=== PATIENT | female | born 1965 | race Hispanic/Latino ===

== ENCOUNTER 2018-09-25 05:11 | Emergency (ER) | payer BC, SELFPAY ==
[2018-09-25 05:38] LABS: Pregnancy Test - Urine (BHCG) Negative (Negative); Pregu Control Background? CLEAR/WHITE (CLR/WHITE); Pregu Control Bar Appear? YES (CONTROL BAR); Specific Gravity 1.002 (1.002-1.036)
[2018-09-25 05:39] LABS: Bilirubin Negative (Negative); Blood, Urine Moderate (Negative); Clarity Hazy (Clear); Glucose, Urine (Dipstick) Negative (Negative); Leukocyte Large (Negative); Nitrite Negative (Negative); Protein, Urine (Dipstick) Negative (Neg-Trace); Urobilinogen 0.2 mg/dL (0.2-1.0); pH, Urine 7.5 (5.0-9.0)
[2018-09-25] MEDS ORDERED: Cephalexin 500 MG CAP ONE (05:44)
[2018-09-25 05:47] LABS: Bacteria/HPF Rare-Few HPF (None Seen); Squamous Epithelial 0-3 HPF (0-3); WBC/HPF 0-3 HPF (0-3)
[2018-09-25 05:48] LABS: RBC/HPF 0-3 HPF (0-3)
[2018-09-25 05:49] LABS: Crystals/HPF RARE AMORPH PHOS HPF (Negative)
== END 2018-09-25 05:50 | disposition home or self-care (01) ==
LOC: BURERS 05:11
DX: N39.0 Urinary tract infection, site not specified (principal)
CPT/HCPCS: 81003; 81015; 81025; 99283

== ENCOUNTER 2019-05-06 09:38 | Emergency (ER) | payer BC ==
[2019-05-06 09:54] LABS: Bilirubin Negative (Negative); Blood, Urine Trace (Negative); Clarity Cloudy (Clear); Glucose, Urine (Dipstick) Negative (Negative); Leukocyte Negative (Negative); Nitrite Negative (Negative); Protein, Urine (Dipstick) Negative (Neg-Trace); Urobilinogen 0.2 mg/dL (Less than 2)
[2019-05-06] MEDS ORDERED: Phenazopyridine HCl 97.5 MG TABLET ONE (10:03)
== END 2019-05-06 10:03 | disposition home or self-care (01) ==
LOC: BURERS 09:38
DX: R30.0 Dysuria (principal)
CPT/HCPCS: 81003; 87086; 99283

== ENCOUNTER 2023-06-28 19:50 | Emergency (ER) | payer BC, SELFPAY ==
[2023-06-28] MEDS ORDERED: Ondansetron PF 4 MG/2 ML Vial ONE (20:12)
[2023-06-28] MEDS ORDERED: Ibuprofen 800 MG TAB ONE (20:12)
[2023-06-28 20:43] LABS: #Basophils 0.1 thou/uL (0.0-0.2); #Lymphocytes 1.2 thou/uL (1.20-3.40); #Monocytes 0.4 thou/uL (0.11-0.59); #Neutrophils 8.8 thou/uL (1.40-6.50); %Basophils 0.6 % (0.0-1.0); %Eosinophils 0.2 % (0.0-10.0); %Lymphocytes 11.6 % (21.0-51.0); %Monocytes 3.4 % (0.0-10.0); %Neutrophils 84.2 % (42.0-75.0); Hemoglobin 15.3 g/dL (12.0-16.0); Mean Corpuscular HGB CONC 33.2 g/dL (32.0-36.0); Mean Corpuscular Hemoglobin 28.8 pg (27.0-31.0); Mean Corpuscular Volume 86.8 fl (78.0-98.0); Mean Platelet Volume 7.3 fL (7.4-10.4); Platelet Count 347 10x3/uL (130-400); Red Blood Cell (RBC) Count 5.29 mill/uL (4.20-5.40); White Blood Cell (WBC) Count 10.5 10x3/uL (4.8-10.8)
[2023-06-28 20:54] LABS: ALT (SGPT) 19 U/L (8-55); AST (SGOT) 20 U/L (5-34); Albumin 4.5 g/dL (3.5-5.0); Alkaline Phosphatase 123 U/L (40-110); Anion Gap 18 mmol/L (10-20); BUN (Urea Nitrogen) 12 mg/dL (9.8-20.1); Bilirubin, Total 0.6 mg/dL (0.2-1.2); Calc. Creatinine Clearance 0 mL/min (70-130); Calcium 9.6 mg/dL (7.8-10.44); Carbon Dioxide 20 mmol/L (22-29); Chloride 103 mmol/L (98-107); Estimated GFR 88; Globulin 3.9 g/dL (2.4-3.5); Glucose 178 mg/dL (70-105); Potassium 3.6 mmol/L (3.5-5.1); Protein, Total 8.4 g/dL (6.0-8.3); Sodium 137 mmol/L (136-145)
[2023-06-28] MEDS ORDERED: Acetaminophen 500 MG TAB ONE (22:30)
== END 2023-06-28 22:33 | disposition home or self-care (01) ==
LOC: BURERS 19:50
DX: B34.9 Viral infection, unspecified (principal)
CPT/HCPCS: 80053; 83605; 85025; 87040; 87081; 87430; 87804; 96361; 96374; J2405

== ENCOUNTER 2024-08-04 09:59 | Emergency (ER) | payer BC, SELFPAY ==
[2024-08-04 10:18] LABS: Bilirubin Negative (Negative); Blood, Urine Trace (Negative); Clarity Clear (Clear); Glucose, Urine (Dipstick) Negative (Negative); Ketone, Urine Negative (Negative); Leukocyte Negative (Negative); Nitrite Negative (Negative); Protein, Urine (Dipstick) Negative (Neg-Trace); Urobilinogen 0.2 mg/dL (Less than 2)
[2024-08-04 10:25] LABS: Bacteria/HPF Rare-Few HPF (None Seen); CAUTI Indications for Culture Acute Hematuria; RBC/HPF 0-3 HPF (0-3); Squamous Epithelial 0-3 HPF (0-3); WBC/HPF None Seen HPF (0-3)
[2024-08-04 10:26] LABS: Urine Culture Reflex No No
== END 2024-08-04 10:51 | disposition home or self-care (01) ==
LOC: BURERS 09:59
DX: R35.0 Frequency of micturition (principal)
CPT/HCPCS: 81001; 99283